=== PATIENT | female | born 1965 | race Caucasian/White ===

== ENCOUNTER → 2020-11-28 12:31 | Outpatient (CLI) | payer MEDICAID, SELFPAY ==
[2020-11-28 12:52] LABS: Basophils # 0.1 K/mm3 (0-0.2); Basophils % 0.6 % (0.1-2.0); Eosinophils # 2.7 K/mm3 (0.0-0.4); Eosinophils % 13.5 % (0.1-12.0); Hematocrit 46.1 % (37.0-47.0); Hemoglobin 14.2 g/dL (12.2-16.2); Lymphocytes # 2.3 K/mm3 (0.7-4.5); Lymphocytes % 11.6 % (10-50); Mean Corpuscular HGB Conc 30.8 g/dL (31.8-35.4); Mean Corpuscular Hemoglobin 30.5 pg (27.0-31.2); Mean Platelet Volume 7.2 fl (7.4-10.4); Monocytes # 0.6 K/mm3 (0.1-1.0); Neutrophils # 14.2 K/mm3 (1.8-7.8); Neutrophils % 71.3 % (37.0-80.0); Platelet Count 545 K/mm3 (142-424); Red Blood Count 4.65 M/mm3 (4.20-5.40); Red Cell Distribution Width 14.1 % (11.5-17.5); White Blood Count 19.9 K/mm3 (4.8-10.8)
[2020-11-28 13:20] LABS: Chloride 105 mmol/L (98-107); Sodium 135 mmol/L (136-145)
[2020-11-28 13:23] LABS: Blood Urea Nitrogen 61 mg/dl (7-17); Estimated Glomerular Filt Rate 16 ml/min (>60); GFR (African American) 19 ML/MIN (>60)
[2020-11-28 13:24] LABS: Anion Gap 19.3 mEq/L (5-15); Calcium 9.2 mg/dl (8.4-10.2); Carbon Dioxide 17 mmol/L (22.0-30.0); Glucose 104 mg/dl (74-100)
[2020-11-28 13:31] LABS: MANUAL DIFFERENTIAL MANUAL DIFFERENTIAL (MANUAL DIFF)
[2020-11-28 13:33] LABS: NT Pro Brain Natriuretic Pep. 3500 pg/mL (0-125)
[2020-11-28 13:41] LABS: Potassium 6.3 mmoL/L (3.5-5.1)
[2020-11-28 14:06] LABS: Eosinophils % 8 % (0-3); Lymphocytes % 11 % (10-50); Monocytes % 7 % (2-9); Neutrophils % 74 % (42-76); Total Cells Counted 100
[2020-11-28 14:07] LABS: Hypochromasia 2+; Platelet Estimate Normal
== END ==
PROVIDERS: Visit Provider Internal Medicine Cardiovascular Disease
DX: R07.89 Other chest pain (principal); R06.00 Dyspnea, unspecified; I48.19 Other persistent atrial fibrillation; R94.31 Abnormal electrocardiogram [ECG] [EKG]; I10 Essential (primary) hypertension; E78.5 Hyperlipidemia, unspecified; F17.200 Nicotine dependence, unspecified, uncomplicated; Z72.0 Tobacco use; Z79.01 Long term (current) use of anticoagulants
CPT/HCPCS: 36415; 80048; 83880; 85007; 85025

== ENCOUNTER 2020-11-30 20:07 | Emergency (ER) | payer MEDICAID, SELFPAY ==
[2020-11-30] VITALS (8 sets, daily range): BP systolic 82–98; BP diastolic 42–56; PULSE 71–106; RESP 12–20; TEMP 36.6; O2SAT 86–98; BMI 60.8
[2020-11-30 21:22] LABS: Basophils # 0.1 K/mm3 (0-0.2); Basophils % 0.5 % (0.1-2.0); Eosinophils # 2.3 K/mm3 (0.0-0.4); Eosinophils % 11.3 % (0.1-12.0); Hematocrit 42.2 % (37.0-47.0); Hemoglobin 12.9 g/dL (12.2-16.2); Lymphocytes # 1.9 K/mm3 (0.7-4.5); Lymphocytes % 9.7 % (10-50); Mean Corpuscular HGB Conc 30.6 g/dL (31.8-35.4); Mean Corpuscular Volume 97.9 fl (81-99); Mean Platelet Volume 7.5 fl (7.4-10.4); Monocytes # 0.5 K/mm3 (0.1-1.0); Monocytes % 2.3 % (1.7-9.3); Neutrophils # 15.2 K/mm3 (1.8-7.8); Neutrophils % 76.1 % (37.0-80.0); Platelet Count 592 K/mm3 (142-424); Red Blood Count 4.31 M/mm3 (4.20-5.40); Red Cell Distribution Width 14.1 % (11.5-17.5); White Blood Count 19.9 K/mm3 (4.8-10.8)
[2020-11-30 21:23] LABS: Chloride 107 mmol/L (98-107)
[2020-11-30 21:24] LABS: MANUAL DIFFERENTIAL MANUAL DIFFERENTIAL (MANUAL DIFF); Sodium 134 mmol/L (136-145)
[2020-11-30 21:26] LABS: Alanine Aminotransferase 18 U/L (12-78); Albumin Level 2.9 g/dl (3.5-5.0); Albumin/Globulin Ratio 0.7 (1.1-1.8); Alkaline Phosphatase 166 U/L (38-126); Aspartate Amino Transferase 31 U/L (14-36); Bilirubin,Total 0.4 mg/dl (0.2-1.3); Blood Urea Nitrogen 79 mg/dl (7-17); Carbon Dioxide 15 mmol/L (22.0-30.0); Creatinine Clearance Estimated 12 mL/min (50-200); Estimated Glomerular Filt Rate 9 ml/min (>60); GFR (African American) 10 ML/MIN (>60); Globulin 3.9 g/dL (1.3-3.2); Glucose 122 mg/dl (74-100); Total Protein,Serum 6.8 g/dl (6.3-8.2)
[2020-11-30 21:27] LABS: Calcium 8.6 mg/dl (8.4-10.2)
[2020-11-30 21:28] LABS: Anion Gap 18.2 mEq/L (5-15); Potassium 6.2 mmoL/L (3.5-5.1)
--- NOTE | 2020-11-30 21:30 | ECG_ITS ---
APPROVED REPORT Exam: Resting ECG HR:100 bpm ECG Measurements Heart Rate 100 AXES QRSd 72 QRS 44 QT 338 T 65 QTc 436 Conclusion Atrial fibrillation with premature ventricular or aberrantly conducted complexes Septal infarct, age undetermined Abnormal ECG Electronically signed by : Carlitos Reilly MD 12/01/2020 08:55:51
--- NOTE | 2020-11-30 21:30 | XR_ITS ---
PROCEDURE INFORMATION: Exam: XR Chest Exam date and time: 11/30/2020 9:30 PM Age: 55 years old Clinical indication: Other: Chf TECHNIQUE: Imaging protocol: XR of the chest. Views: 1 view. COMPARISON: CR CXR CHEST(2 VIEWS-NOT PORTABLE) 03/14/2015 4:28 PM FINDINGS: Lungs: Cardiomegaly with interstitial opacities of the lung bases suggest [id number] CHF. Pleural spaces: Unremarkable. No pleural effusion. No pneumothorax. Heart/Mediastinum: See Lungs finding. Bones/joints: Unremarkable. IMPRESSION: Cardiomegaly with interstitial opacities of the lung bases suggest [id number] CHF.
--- NOTE | 2020-11-30 21:32 | HMH.EDRECH ---
ED Disposition Clinical Impression: RIDDHI (acute kidney injury), Acute hyperkalemia, Severe sepsis with acute organ dysfunction Hypothyroidism Qualifiers: Hypothyroidism type: acquired Qualified Code(s): E03.9 - Hypothyroidism, unspecified Atrial fibrillation Qualifiers: Atrial fibrillation type: unspecified chronic Qualified Code(s): I48.20 - Chronic atrial fibrillation, unspecified Obesity Qualifiers: Obesity type: due to excess calories Obesity classification: adult class 3 (BMI >= 40) Serious obesity comorbidity presence: with serious comorbidity Body mass index: BMI 60.0-69.9 Qualified Code(s): E66.01 - Morbid (severe) obesity due to excess calories; Z68.44 - Body mass index [BMI] 60.0-69.9, adult UTI (urinary tract infection) Qualifiers: Urinary tract infection type: site unspecified Hematuria presence: without hematuria Qualified Code(s): N39.0 - Urinary tract infection, site not specified Cellulitis Qualifiers: Site of cellulitis: extremity Site of cellulitis of extremity: lower extremity Laterality: unspecified laterality Qualified Code(s): L03.119 - Cellulitis of unspecified part of limb Disposition: Xfer Short-Term Hosp Condition on Discharge: Good Referrals: Anton Griffin MD [Primary Care Provider] - - Critical Care Critical Care Time: No Attestation: On 11/30/20, the high probability of a clinically significant, sudden or life threatening deterioration of the following system(s) required my full and direct attention, intervention and personal management. The time I documented below is in addition to time spent performing reported procedures but includes the following listed in this critical care notation. Medical Decision Making - Medical Records Medical records reviewed: Yes: I reviewed the patient's medical records. - Parish Inquiry Pt receiving controlled substance: No Vital Signs: 11/30/20 20:09 11/30/20 20:30 11/30/20 21:00 Temperature 98 F Temperature Source Oral Pulse Rate 106 H 100 H Pulse Rate [Right] 98 H Respiratory Rate 20 18 Blood Pressure 82/52 L Blood Pressure [Right Arm] 88/42 L Blood Pressure Mean [Right Arm] 57 02 Sat by Pulse Oximetry 96 97 98 Oxygen Delivery Method Room Air Oxygen Flow Rate (LPM) 2 11/30/20 21:30 11/30/20 22:26 11/30/20 22:45 Temperature Temperature Source Pulse Rate 106 H 77 100 H Pulse Rate [Right] Respiratory Rate 15 12 Blood Pressure 96/56 L Blood Pressure [Right Arm] Blood Pressure Mean [Right Arm] 02 Sat by Pulse Oximetry 98 98 Oxygen Delivery Method Oxygen Flow Rate (LPM) 11/30/20 23:45 11/30/20 23:49 Temperature Temperature Source Pulse Rate 99 H Pulse Rate [Right] Respiratory Rate Blood Pressure 98/56 L 95/45 L Blood Pressure [Right Arm] Blood Pressure Mean [Right Arm] 02 Sat by Pulse Oximetry 86 L Oxygen Delivery Method Oxygen Flow Rate (LPM) - Lab Data Lab results reviewed: Yes: I reviewed the patient's lab results. Lab Results 11/30/20 20:26: WBC 19.9 H, RBC 4.31, Hgb 12.9, Hct 42.2, MCV 97.9, MCH 30.0, MCHC 30.6 L, RDW 14.1, Plt Count 592 H, MPV 7.5, Neut % (Auto) 76.1, Lymph % (Auto) 9.7 L, [place] % (Auto) 2.3, Eos % (Auto) 11.3, Baso % (Auto) 0.5, Neut # (Auto) 15.2 H, Lymph # (Auto) 1.9, [place] # (Auto) 0.5, Eos # (Auto) 2.3 H, Baso # (Auto) 0.1, Total Counted 100, Neutrophils % (Manual) 79 H, Band Neutrophils % 8.0, Lymphocytes % (Manual) 3 L, Eosinophils % (Manual) 10 H, Platelet Estimate Moderate increase, Hypochromasia 2+, Macrocytosis 1+, Rouleaux 1+ 11/30/20 20:26: Sodium 134 L, Potassium 6.2 H*, Chloride 107, Carbon Dioxide 15 L, Anion Gap 18.2 H, BUN 79 H D, Creatinine 5.20 H D, Estimated Creat Clear 12, Estimated GFR 9 L*, Est GFR ( Amer) 10 L* D, Glucose 122 H, Calcium 8.6, Magnesium 2.0, Total Bilirubin 0.4, AST 31, ALT 18, Alkaline Phosphatase 166 H, Troponin I < 0.01, NT-Pro-B Natriuret Pep 4590 H, Total Protein 6.8, Albumin 2.9 L, Globu
[2020-11-30 21:36] LABS: NT Pro Brain Natriuretic Pep. 4590 pg/mL (0-125)
[2020-11-30 21:44] LABS: Troponin I < 0.01 ng/ml (0.00-0.034)
[2020-11-30 21:47] LABS: C-Reactive Protein 144.4 mg/L (0-4)
[2020-11-30 21:54] LABS: Eosinophils % 10 % (0-3); Hypochromasia 2+; Lymphocytes % 3 % (10-50); Macrocytosis 1+; Neutrophils % 79 % (42-76); Platelet Estimate Moderate Increase; Rouleaux 1+; Total Cells Counted 100
[2020-11-30 21:56] LABS: Erythrocyte Sedimentation Rate 26 mm/hr (0-30)
[2020-11-30 22:01] LABS: Procalcitonin 0.421 ng/mL (0.0-2.0); T4 (Thyroxine) 3.5 ug/dl (5.53-11.0)
--- NOTE | 2020-11-30 22:10 | PC.NURSE ---
[facility] s/w Dr. Colvin. They have no beds available.
[2020-11-30 22:15] LABS: Thyroid Stimulating Hormone 3.85 uIU/mL (0.465-4.68)
--- NOTE | 2020-11-30 22:30 | PC.NURSE ---
Called [facility], they have no beds.
[2020-11-30 22:40] LABS: Lactic Acid 1.4 mmol/L (0.7-2.1)
--- NOTE | 2020-11-30 23:20 | PC.NURSE ---
Called Dr. Ade ARANA s/w [facility] and they have accepted pt. Will call back with bed assignment.
[2020-11-30 23:33] LABS: Microscopic, Urine URINE MICROSCOPIC (MICROSCOPIC)
[2020-11-30 23:35] LABS: Appearance,Urine CLOUDY (Clear); Bilirubin,Urine Negative (Negative); Blood, Urine 3+ (Negative); Color,Urine YELLOW (Yellow); Glucose,Urine (UA) Negative (Negative); Ketones,Urine TRACE (Negative); Leukocyte Esterase,Urine 2+ (Negative); Nitrate,Urine Negative (Negative); Protein,Urine 2+ (Negative); Specific Gravity, Urine >= 1.030 (1.005-1.030); Urobilinogen,Urine 0.2 EU/dl (0.2)
[2020-11-30 23:40] LABS: Bacteria,Urine 2+ /lpf; RBC,Urine TNTC #/hpf (0-3); Squamous Epithelial Cell,Urine Occasional #/hpf (0-5); WBC,Urine TNTC #/hpf (0-3)
[2020-11-30 23:57] LABS: Coronavirus 19, PCR Not Detected (NotDetected); Influenza A, PCR Not Detected (NotDetected); Influenza B, PCR Not Detected (NotDetected)
[2020-12-01 00:02] VITALS: BP 108/83; PULSE 72; O2SAT 88
--- NOTE | 2020-12-01 00:28 | PC.NURSE ---
Pt will be admitted to [address], accepted by their Hospitalist team.
[2020-12-01 00:30] VITALS: BP 103/76; PULSE 80; O2SAT 94
--- NOTE | 2020-12-01 00:43 | PC.NURSE ---
Attempted to call report to [address] ([phone]) but the nurse was on lunch. Will call back.
--- NOTE | 2020-12-01 01:15 | PC.NURSE ---
s/w Ary at [address] and gave report at this time.
[2020-12-01 01:25] VITALS: BP 106/64; PULSE 118; RESP 18; TEMP 36.7; O2SAT 96
[2020-12-01 01:30] VITALS: BP 108/60; PULSE 98; RESP 16; O2SAT 94
== END 2020-12-01 01:48 | disposition short-term general hospital (02) ==
PROVIDERS: Emergency Provider Emergency Medicine; PCP Emergency Medicine
DX: N17.9 Acute kidney failure, unspecified (principal); N30.00 Acute cystitis without hematuria; A41.9 Sepsis, unspecified organism; E87.5 Hyperkalemia; L03.115 Cellulitis of right lower limb; L03.116 Cellulitis of left lower limb; I48.20 Chronic atrial fibrillation, unspecified; E03.9 Hypothyroidism, unspecified; E66.01 Morbid (severe) obesity due to excess calories; Z68.44 Body mass index [BMI] 60.0-69.9, adult; Z79.899 Other long term (current) drug therapy; F33.1 Major depressive disorder, recurrent, moderate
CPT/HCPCS: 71045; 80053; 81001; 83605; 83735; 83880; 84145; 84436; 84443; 84484; 85007; 85025; 85651; 86140; 87040; 87077; 87086; 87088; 87186; 93005; 96365; 96366; 96375; 99285; C9803; U0003; U0005